=== PATIENT | male | born 1945 | race Two or more races ===

== ENCOUNTER 2024-04-25 12:08 | Emergency (ER) | payer MEDICAID ==
[~2024-04-25] VITALS: Ht 175.3 cm; Wt 111.6 kg
[2024-04-25] MEDS ORDERED: LIDOCAINE 5% (PATCH) 1 EA PATCH TP ONE (12:56)
[2024-04-25] MEDS ORDERED: ACETAMINOPHEN W/ CODEINE#3 1 EA TABLET ONE (12:57)
[2024-04-25] MEDS: LIDOCAINE 5% (PATCH) 1 EA PATCH TP ONE (13:01)
[2024-04-25] MEDS: ACETAMINOPHEN W/ CODEINE#3 1 EA TABLET PO ONE (13:01)
[2024-04-25 13:05] LABS: APPEARANCE,URINE Clear (CLEAR); BILIRUBIN,URINE Negative (NEGATIVE); BLOOD, URINE Negative Ery/uL (NEGATIVE); COLOR,URINE YELLOW (YELLOW); KETONES,URINE Negative (NEGATIVE); LEUKOCYTE ESTERASE ,URINE Negative (NEGATIVE); NITRITE, URINE Negative (NEGATIVE); PH,URINE 5.5 (5.0-8.0); PROTEIN,URINE Negative (NEGATIVE); UGLUCOSE Negative (NEGATIVE); UROBILINOGEN,URINE 0.2 EU/dL (0.2)
[2024-04-25 15:06] VITALS: BP 148/94; TEMP 98.5; O2SAT 98
== END 2024-04-25 15:07 | disposition home or self-care (01) ==
LOC: ER 12:12
DX: G89.29 Other chronic pain (principal); M79.675 Pain in left toe(s); M25.561 Pain in right knee; R35.0 Frequency of micturition
CPT/HCPCS: 73564-TC; 73630-TC